=== PATIENT | female | born 1975 | race Caucasian/White ===

== ENCOUNTER 2017-01-06 14:56 | Inpatient (IN) | payer MEDICAID, OTHER ==
[~2017-01-06] VITALS: Ht 162.6 cm; Wt 75.0 kg
[2017-01-06] MEDS ORDERED: morphine 2 MG INJ IV STA (16:44)
[2017-01-06] MEDS ORDERED: ONDANSETRON 4 MG INJ IV STA ×2 (16:44→18:49)
[2017-01-06] MEDS ORDERED: SOD CHLORIDE 0.9% 1,000 ML IV STA (16:44)
[2017-01-06 17:07] LABS: ADD SCAN DIFF NO
[2017-01-06 17:10] LABS: ADD UMIC YES; BASOPHILS % 0.3 % (0.0-2.0); EOSINOPHILS # 0.2 10^3/ul (0.0-0.5); EOSINOPHILS % 1.5 % (0.0-7.0); HEMATOCRIT 37.2 % (37.0-47.0); HEMOGLOBIN 12.3 g/dl (12.0-16.0); LYMPHOCYTES # 2.8 10^3/ul (0.8-2.9); LYMPHOCYTES % 21.8 % (15.0-51.0); MEAN CORPUSCULAR HGB CONC 33.1 g/dl (32.0-37.0); MEAN CORPUSCULAR VOLUME 84.7 fl (82.0-101.0); MEAN PLATELET VOLUME 10.2 fl (7.4-10.4); MONOCYTES % 7.6 % (0.0-11.0); NEUTROPHIL # 8.9 10^3/ul (1.6-7.5); NEUTROPHILS % 68.5 % (39.0-77.0); PLATELET COUNT 340 10^3/UL (140-415); RED BLOOD COUNT 4.39 10^6/ul (4.20-5.40); RED CELL DISTRIBUTION WIDTH 13.9 % (11.5-14.5); URINE BILIRUBIN (Dip) NEGATIVE (NEGATIVE); URINE BLOOD (Dip) 3+ (NEGATIVE); URINE COLOR YELLOW (YELLOW); URINE GLUCOSE (Dip) NEGATIVE (NEGATIVE); URINE KETONES (Dip) NEGATIVE (NEGATIVE); URINE LEUKOCYTE ESTERASE (Dip) NEGATIVE (NEGATIVE); URINE NITRITE (Dip) NEGATIVE (NEGATIVE); URINE TOTAL PROTEIN (Dip) NEGATIVE (NEGATIVE); URINE UROBILINOGEN (Dip) 2.0 E.U./dL (0.1-1.0)
[2017-01-06 17:19] LABS: BACTERIA,URINE FEW; MUCUS,URINE MANY; SQUAMOUS EPITHELIAL CELL,UR FEW
[2017-01-06 17:24] LABS: ALBUMIN 4.7 g/dl (3.3-4.9); POTASSIUM 3.4 mmol/L (3.5-5.1)
[2017-01-06 17:27] LABS: ALBUMIN/GLOBULIN RATIO 1.27; BILIRUBIN,INDIRECT 0.1 mg/dl (0-1.1); BILIRUBIN,TOTAL 0.1 mg/dl (0.2-1.3); CALCIUM 9.3 mg/dl (8.4-10.2); CREATININE 0.59 mg/dl (0.44-1.00); TOTAL PROTEIN 8.4 g/dl (6.1-8.1)
--- NOTE | 2017-01-06 17:52 | RADRPT ---
PROCEDURE: US Abdomen (right upper quadrant). CLINICAL INDICATION: Right upper quadrant abdomen pain. TECHNIQUE: Multiple real-time longitudinal and transverse images of the right upper quadrant of th e abdomen were acquired utilizing a curved array transducer. Images were reviewed on a high-resoluti on PACS workstation. COMPARISON: None FINDINGS: The liver is normal in size and diffusely increased in echogenicity. There is no focal hepatic lesion. Gallstones are present in the gallbladder. There is no gallbladder wall thickening or fluid around the gallbladder. The bile ducts are normal with the common bile duct measuring 5.9 mm in diameter. The visualized portions of the pancreas are unremarkable with obscuration of the tail of the pancrea s. No free fluid is present. The right kidney measures 11.6 x 4.3 x 5.1 cm. There is normal echogenicity of the right kidney. There is no perinephric fluid collection. No hydronephrosis, mass, or calculus is seen. IMPRESSION: 1. Gallstones in the gallbladder. No evidence of cholecystitis. 2. Fatty metamorphosis of the liver. 3. Otherwise normal right upper quadrant abdomen ultrasound. RPTAT: QQ .Pete Henson MD, Date Time Electronically viewed and signed by .Pete Henson MD, on 01/06/2017 17:52 .R/
[2017-01-06] MEDS ORDERED: morphine 2 MG INJ IV ONE (19:00)
[2017-01-06] MEDS ORDERED: SOD CHLORIDE 0.9% 1,000 ML IV ONE (19:00)
[2017-01-06 21:03] VITALS: TEMP 98.1
[2017-01-06] MEDS ORDERED: ALBU90AE INHALATION (21:38)
[2017-01-06 21:51] VITALS: BP 134/85; RESP 18
[2017-01-06] MEDS ORDERED: ALBUTEROL/IPRATROPIUM (NEB) 3 ML AMP HHN PRN (22:00)
[2017-01-06] MEDS ORDERED: ONDANSETRON 4 MG INJ IV PRN (22:00)
[2017-01-06] MEDS ORDERED: morphine 4 MG/ML VIAL IV PRN (22:00)
[2017-01-06] MEDS: DEXTROSE 5%-0.45% NACL 1,000 ML IV SCH (22:24)
[2017-01-06 23:07] VITALS: Ht 162.6 cm; Wt 75.0 kg
--- NOTE | 2017-01-07 03:33 | CONS ---
DATE OF ADMISSION: 01/06/2017 DATE OF CONSULTATION: REASON FOR CONSULTATION: Biliary pancreatitis. HISTORY OF PRESENT ILLNESS: The patient is an otherwise healthy 41-year-old female who presents to the emergency room with midepigastric and right upper quadrant abdominal pain. Abdominal ultrasound showed multiple gallstones without gallbladder wall thickening or pericholecystic fluid. Her lipas e was noted to be 6503. She is admitted with a diagnosis of biliary pancreatitis and surgical consu ltation was requested in that regard. PAST MEDICAL HISTORY: No previous abdominal surgeries. OUTPATIENT MEDICATIONS: None. ALLERGIES: NONE. REVIEW OF SYSTEMS: HEENT: Within normal limits. PULMONARY: No history of pneumonia, asthma or shortness of breath. CARDIAC: No history of chest pain, NE or arrhythmia. ABDOMEN: As in the HPI. GENITOURINARY: Asymptomatic. PHYSICAL EXAMINATION: GENERAL: The patient is alert, oriented 41-year-old female in no acute distress. HEAD, EARS, EYES, NOSE, THROAT: Within normal limits. Sclerae are anicteric. LUNGS: Clear. HEART: Regular rhythm. ABDOMEN: Tenderness in the epigastrium with mild guarding and no rebound. EXTREMITIES: Unremarkable. LABORATORY DATA: Hematocrit is 37.2 with a white count of 13,000. BUN, glucose, electrolytes are u nremarkable. Bilirubin is 0.1 with an elevated AST at 166, ALT 124 and alkaline phosphatase 108. L ipase 6503. IMPRESSION: Biliary pancreatitis. PLAN: The patient will require GI evaluation either with MRCP or ERCP. The patient will require la paroscopic cholecystectomy when the common duct is cleared and her pancreatitis cools off. The shari ng of surgery will depend on the above. I will follow with you. Dictated By: KANWAL ACOSTA/SIMONE Conf#: [id number] DID#: [id number]
--- NOTE | 2017-01-07 05:02 | HP ---
Date/Time of Note Date/Time of Note DATE: 01/07/17 TIME: 04:50 Assessment/Plan VTE Prophylaxis VTE Prophylaxis Intervention: SCD's Lines/Catheters Urinary Cath still in place: No Assessment/Plan Assessment/Plan 1. Gallstone Pancreatitis - Keep NPO with IV fluid - Patient has also been evaluated by surgery with plan for eventual surgical intervention. - Will order MRCP and place GI consult for ERCP. - Cont pain mgmt . 2. Abd Pain: 2/2 pancreatitis - see above 3. Leukocytosis: 2/2 pancreatis - see # 1 4. Abnormal LFTs: 2/2 gallstone pancreatitis with possible contribution from fatty liver - see # 1 for mgmt plan 5. Hx of Asthma - no sign of exacerbation - breathing txt as needed 6. Mild Hypokalemia - replete HPI/ROS Admit Date/Time Admit Date/Time January 06, 2017 at 18:57 Hx of Present Illness Patient is a 41 yo female with a hx of asthma who presented to ER c/o abd pain. Pain is mainly located in RUQ area and epigastric. Reported associated nausea. Denied fever, chills, CP, SOB. In ER, u/s showed Gallstones are present in the gallbladder with no gallbladder wall thickening or fluid around the gallbladder , The bile ducts are normal with the common bile duct measuring 5.9 mm in diameter and Fatty liver. Lab showed lipase of 6500, AST/ALT in 100s. Patient has also been evaluated by surgery with plan for eventual surgical eval after MRCP and GI consult for ERCP. . PMH/Family/Social Past Medical History Medical History: other (Asthma) Past Surgical History Past Surgical Hx: other () Social History Alcohol Use: none Smoking Status: Never smoker Drug Use: none Exam/Review of Systems Vital Signs Vitals Vital Signs Date Time Temp Pulse Resp B/P Pulse Ox O2 Delivery O2 Flow Rate FiO2 01/06/17 21:51 98.6 20 18 134/85 96 01/06/17 21:03 Room Air Exam Constitutional: alert, oriented, well developed Head: atraumatic, normocephalic Eyes: EOMI, PERRL Respiratory: clear to auscultation, normal air movement Cardiovascular: nl pulses, regular rate and rhythm Gastrointestinal: soft, tender Extremities: normal pulses Labs Result Diagram: 01/06/175 01/06/17 2352 Medications Medications Current Medications Dextrose/Sodium Chloride (D5-1/2ns) 1,000 ml @ 125 mls/hr Q8H IV Last administered on 01/06/17t 22:24; Admin Dose 125 MLS/HR; Start 01/06/17 at 22:00 Ondansetron HCl (Zofran Inj) 4 mg Q6H PRN IV NAUSEA AND/OR VOMITING; Start 01/06 at 22:00 Morphine Sulfate (morphine) 4 mg Q4H PRN IV SEVERE PAIN LEVEL 7-10; Start at 22:00 LISANDRO JASSO MD January 07, 2017 05:00
[2017-01-07] MEDS ORDERED: POTASSIUM CHLORIDE 20 MEQ in SOD CHLORIDE 0.9% 100 ML IVPB ONE (05:30)
[2017-01-07] MEDS: DEXTROSE 5%-0.45% NACL 1,000 ML IV SCH ×4 (06:00→18:58)
[2017-01-07 06:08] LABS: ADD SCAN DIFF NO
[2017-01-07 06:12] LABS: BASOPHILS % 0.7 % (0.0-2.0); EOSINOPHILS # 0.2 10^3/ul (0.0-0.5); EOSINOPHILS % 3.6 % (0.0-7.0); HEMOGLOBIN 10.5 g/dl (12.0-16.0); LYMPHOCYTES # 2.6 10^3/ul (0.8-2.9); LYMPHOCYTES % 44.9 % (15.0-51.0); MEAN CORPUSCULAR HEMOGLOBIN 27.9 pg (29.0-33.0); MEAN CORPUSCULAR HGB CONC 32.8 g/dl (32.0-37.0); MEAN CORPUSCULAR VOLUME 84.9 fl (82.0-101.0); MEAN PLATELET VOLUME 10.5 fl (7.4-10.4); MONOCYTE # 0.4 10^3/ul (0.3-0.9); MONOCYTES % 6.6 % (0.0-11.0); NEUTROPHIL # 2.5 10^3/ul (1.6-7.5); PLATELET COUNT 282 10^3/UL (140-415); RED BLOOD COUNT 3.77 10^6/ul (4.20-5.40); RED CELL DISTRIBUTION WIDTH 14.1 % (11.5-14.5); WHITE BLOOD COUNT 5.8 10^3/ul (4.8-10.8)
[2017-01-07 07:40] LABS: ALBUMIN 3.2 g/dl (3.3-4.9); ALBUMIN/GLOBULIN RATIO 1.18; BILIRUBIN,INDIRECT 0.3 mg/dl (0-1.1); BILIRUBIN,TOTAL 0.3 mg/dl (0.2-1.3); CREATININE 0.65 mg/dl (0.44-1.00); MAGNESIUM 1.9 mg/dl (1.7-2.5); PHOSPHORUS 3.7 mg/dl (2.5-4.9); POTASSIUM 4.1 mmol/L (3.5-5.1); TOTAL PROTEIN 5.9 g/dl (6.1-8.1)
[2017-01-07 07:45] VITALS: BP 107/67; RESP 20
--- NOTE | 2017-01-07 09:44 | PN ---
DATE: 01/07/2017 The patient is markedly symptomatically improved. LABORATORY DATA: Her white count has come down to 5800 without left shift. BUN, glucose, electroly gustavo are unremarkable. Lipase has come down dramatically to 125. She still has elevations in AST an d ALT at 139 and 229 respectively. Her abdominal examination shows minimal tenderness in the epigastrium. PLAN: The patient is scheduled for MRCP at 10:30 this morning. Laparoscopic cholecystectomy once C BD clears and pancreatitis resolves. Dictated By: KANWAL ACOSTA/NTS Conf#: [id number] DID#: [id number]
[2017-01-07] MEDS: ACETAMINOPHEN 325 MG TAB PO PRN (11:31)
--- NOTE | 2017-01-07 11:55 | ERA ---
ER Documentation Chief Complaint Date/Time DATE: 01/06/17 Chief Complaint EPIGASTRIC PAIN X 3 DAYS HPI The patient is a 42-year-old female, presenting to the ER because of epigastric abdominal pain for 3 days, intermittently, worse today. She denies similar symptoms previously, denies fever, chills, neck pain, chest pain. She complains of nausea but no vomiting, denies dysuria, diarrhea, constipation. She does not smoke, drinks socially Past medical/medical history: None ROS All systems reviewed and are negative except as per history of present illness. Medications Home Meds Reported Medications Albuterol Sulfate (Proair Respiclick) 90 Mcg Aer.pow.ba, 2 PUFFS INHALATION Q6 Y for SHORTNESS OF BREATH, #1 BOTTLE 01/06/17 Allergies Allergies: Coded Allergies: Penicillins (Unverified Allergy, Unknown, 01/06/17) PMhx/Soc History of Surgery: No Anesthesia Reaction: No Hx Neurological Disorder: No Hx Respiratory Disorders: Yes (ASTHMA) Hx Cardiac Disorders: No Hx Psychiatric Problems: No Hx Miscellaneous Medical Probl: No Hx Alcohol Use: No Hx Substance Use: No Hx Tobacco Use: No Smoking Status: Never smoker Physical Exam Vitals Vital Signs Date Time Temp Pulse Resp B/P Pulse Ox O2 Delivery O2 Flow Rate FiO2 01/06/17 15:16 98.0 81 18 125/79 99 Physical Exam Const: No acute distress. Head: Atraumatic. Eyes: Normal Conjunctiva. ENT: Normal External Ears, Nose and Mouth. Neck: Full range of motion. No meningismus. Resp: Clear to auscultation bilaterally. Cardio: Regular rate and rhythm, no murmurs. Abd: Soft, non distended, normal bowel sounds, mild epigastric and right upper quadrant tenderness, no right lower quadrant, rigidity, rebound, CVA tenderness Skin: No petechiae or rashes. Back: No midline or flank tenderness. Ext: No cyanosis, or edema. Neur: Awake and alert. No focal deficit Psych: Normal Mood and Affect. Result Diagram: 01/07/17 0525 01/07/17 0529 Results 24 hrs Laboratory Tests Test 01/06/17 16:55 White Blood Count 13.010^3/ul Red Blood Count 4.3910^6/ul Hemoglobin 12.3g/dl Hematocrit 37.2% Mean Corpuscular Volume 84.7fl Mean Corpuscular Hemoglobin 28.0pg Mean Corpuscular Hemoglobin Concent 33.1g/dl Red Cell Distribution Width 13.9% Platelet Count 19416^3/UL Mean Platelet Volume 10.2fl Neutrophils % 68.5% Lymphocytes % 21.8% Monocytes % 7.6% Eosinophils % 1.5% Basophils % 0.3% Nucleated Red Blood Cells % 0.0/100WBC Neutrophils # 8.910^3/ul Lymphocytes # 2.810^3/ul Monocytes # 1.010^3/ul Eosinophils # 0.210^3/ul Basophils # 0.010^3/ul Nucleated Red Blood Cells # 0.010^3/ul Urine Color YELLOW Urine Clarity SLIGHTLY CLOUDY Urine pH 6.0 Urine Specific [place] 1.025 Urine Ketones NEGATIVE Urine Nitrite NEGATIVE Urine Bilirubin NEGATIVE Urine Urobilinogen 2.0 E.U./dL Urine Leukocyte Esterase NEGATIVE Urine Microscopic RBC 10-25/HPF Urine Microscopic WBC 0-2/HPF Urine Squamous Epithelial Cells FEW Urine Bacteria FEW Urine Mucus MANY Urine Hemoglobin 3+ Urine Glucose NEGATIVE% Urine Total Protein NEGATIVE Sodium Level 142mmol/L Potassium Level 3.4mmol/L Chloride Level 100mmol/L Carbon Dioxide Level 28mmol/L Anion Gap 17 Blood Urea Nitrogen 12mg/dl Creatinine 0.59mg/dl Glucose Level 94mg/dl Calcium Level 9.3mg/dl Total Bilirubin 0.1mg/dl Direct Bilirubin 0.00mg/dl Indirect Bilirubin 0.1mg/dl Aspartate Amino Transf (AST/SGOT) 166IU/L Alanine Aminotransferase (ALT/SGPT) 124IU/L Alkaline Phosphatase 108IU/L Total Protein 8.4g/dl Albumin 4.7g/dl Globulin 3.70g/dl Albumin/Globulin Ratio 1.27 Lipase 6503U/L Current Medications Medications (Trade) Dose Ordered Sig/Jeremiah Route PRN Reason Start Time Stop Time Status Last Admin Dose Admin Sodium Chloride (NS) 1,000 ml @ 1,000 mls/hr Q1H STAT IV 01/06/17 16:44 01/06/17 17:43 DC 01/06/17 17:03 Morphine Sulfate (morphine) 2 mg ONCE STAT IV 01/06/17 16:44 01/06/17 16:45 DC 01/06/17 17:02 Ondansetron HCl (Zofran Inj) 4 mg ONCE STAT IV 01/06/17 16:44 01/06/17 16:45 DC 01/06/17 17:03 Ondansetron HCl (Zofran Inj) 4 mg ONCE STAT IV 01/06/17 18:49 01/06/17 18:50 DC 01/06/17 19:08 Procedures/[place] [id number] Radiology Main Line: [phone] DIAGNOSTIC IMAGING REPORT Patient: SHREE DIETRICH : 1975 Age: 41 Sex: F MR #: [id number] DOS: 01/06/17 1644 Ordering MD: DESMOND ROUSSEAU PA-C Location: [facility] Room/Bed: PROCEDURE: US Abdomen (right upper quadrant). CLINICAL INDICATION: Right upper quadrant abdomen pain. TECHNIQUE: Multiple real-time longitudinal and transverse images of the right upper quadrant of the abdomen were acquired utilizing a curved array transducer. Images were reviewed on a high-resolution PACS workstation. COMPARISON: None FINDINGS: The liver is normal in size and diffusely increased in echogenicity. There is no focal hepatic lesion. Gallstones are present in the gallbladder. There is no gallbladder wall thickening or fluid around the gallbladder. The bile ducts are normal with the common bile duct measuring 5.9 mm in diameter. The visualized portions of the pancreas are unremarkable with obscuration of the tail of the pancreas. No free fluid is present. The right kidney measures 11.6 x 4.3 x 5.1 cm. There is normal echogenicity of the right kidney. There is no perinephric fluid collection. No hydronephrosis, mass, or calculus is seen. IMPRESSION: 1. Gallstones in the gallbladder. No evidence of cholecystitis. 2. Fatty metamorphosis of the liver. 3. Otherwise normal right upper quadrant abdomen ultrasound. RPTAT: QQ .Pete Henson MD, MD Date Time Electronically viewed and signed by .Pete Henson MD, on 01/06/2017 17:52 .R/ CC: DESMOND ROUSSEAU PA-C MEDICAL MAKING DECISION: The patient is a 41-year-old female, presenting with acute gallstone pancreatitis. She was treated with 1 L normal saline for clinical dehydration, morphine 2 mg IV 2 for pain, Zofran 4 mg IV 2 for nausea with good response The differential diagnoses considered include but are not limited to cholelithiasis, cholecystitis, cystitis, pancreatitis, hepatitis, gastritis, peptic ulcer disease, gastric ulcer, appendicitis, diverticulitis, cholangitis, choledocholithiasis, partial small bowel obstruction. Consultation: I discussed the patient with the on-call general surgeon Dr. Meyer at 6:40 PM, who was made aware of the lab, treatment, the patient condition. He accepted the consult Departure Diagnosis: Primary Impression: Gallstone pancreatitis Additional Impression: Anemia Condition: Stable Comments I discussed the findings with the patient. I discussed the patient with the on- call hospitalist Dr. Koroma who was made aware of the lab, the treatment, the patient condition. The patient is admitted to [facility] at 6:40 PM CATE TALAVERA MD January 07, 2017 11:55
--- NOTE | 2017-01-07 13:48 | RADRPT ---
PROCEDURE: MRCP. CLINICAL INDICATION: Right upper quadrant pain. Gallstones. Pancreatitis. TECHNIQUE: MRCP was performed on the a high-resolution, high Melanie field strength scanner. Patien enedina was examined without contrast. 3-D coronal rotating MIP images of the biliary tree are available for review. COMPARISON: Correlation with ultrasound from 01/06/2017. FINDINGS: Small stones and sludge are seen layering dependently within the gallbladder. There is mild gallbla dder wall edema. The biliary tree is unremarkable without evidence of choledocholithiasis or dilata tion. The proximal CBD measures 5 mm in diameter and tapers smoothly towards the ampulla. The panc reatic duct is not dilated. There is no pancreatic divisum. There is no evidence of increased pancreatic T2 signal or peripancreatic inflammatory changes to sug gest pancreatitis. The liver, spleen, adrenal glands, kidneys, and stomach demonstrate normal sign al intensity and morphology. The visualized bowel is unremarkable. IMPRESSION: Small gallbladder stones and sludge with mild gallbladder wall edema. The findings may represent ac [place] calculus cholecystitis in the correct clinical setting. No evidence of choledocholithiasis, josé iary ductal dilatation, or pancreatitis. RPTAT: HRAA .John Marinelli MD, MD Date Time Electronically viewed and signed by .John Marinelli MD, on 01/07/2017 13:48 .A/
--- NOTE | 2017-01-07 14:19 | PN ---
Date/Time of Note Date/Time of Note DATE: 01/07/17 TIME: 14:17 Assessment/Plan VTE Prophylaxis VTE Prophylaxis Intervention: SCD's Lines/Catheters IV [facility] (from [facility]): Peripheral IV Urinary Cath still in place: No Assessment/Plan Chief Complaint/Hosp Course Assessment/Plan 1. Gallstone Pancreatitis - Keep NPO with IV fluid - Patient has also been evaluated by surgery with plan for eventual surgical intervention. -Status post MRCP without any evidence of choledocholithiasis - Cont pain mgmt 2. Leukocytosis: 2/2 pancreatis - see # 1 3. Abnormal LFTs: 2/2 gallstone pancreatitis with possible contribution from fatty liver - see # 1 for mgmt plan 4. Hx of Asthma - no sign of exacerbation - breathing txt as needed 5. Mild Hypokalemia - replete Problems: Subjective 24 Hr Interval Summary Free Text/Dictation Patient abdominal discomfort has improved significantly Denies of any chest pain or shortness of breath N.p.o. Exam/Review of Systems Vital Signs Vitals Vital Signs Date Time Temp Pulse Resp B/P Pulse Ox O2 Delivery O2 Flow Rate FiO2 01/07/17 07:45 98.0 68 20 107/67 96 01/06/17 21:03 Room Air Intake and Output 01/06/17 01/06/17 01/07/17 15:00 23:00 07:00 Intake Total 875 ml Balance 875 ml Exam General: The patient is well-developed, Not in acute distress. HEENT: Atraumatic, normocephalic. The pupils are equal and round . Neck: Supple with full range of motion. Chest: Normal expansion of the thorax during inspiration Lungs: Clear to auscultation bilaterally Heart: Normal S1-S2, Regular rhythm and rate. Abdomen: Soft , nontender, nondistended , bowel sounds are present. Extremities: Normal to inspection, no edema no cyanosis Neurologic: Normal mental status,The patient is awake, alert and oriented . Results Result Diagram: 01/07/17 0525 01/07/17 0529 Results 24 hrs Laboratory Tests Test 01/06/17 16:55 01/07/17 05:25 01/07/17 05:29 White Blood Count 13.0 H 5.8 # Red Blood Count 4.39 3.77 L Hemoglobin 12.3 10.5 L Hematocrit 37.2 32.0 L Mean Corpuscular Volume 84.7 84.9 Mean Corpuscular Hemoglobin 28.0 L 27.9 L Mean Corpuscular Hemoglobin Concent 33.1 32.8 Red Cell Distribution Width 13.9 14.1 Platelet Count 340 282 Mean Platelet Volume 10.2 10.5 H Neutrophils % 68.5 44.0 Lymphocytes % 21.8 44.9 Monocytes % 7.6 6.6 Eosinophils % 1.5 3.6 Basophils % 0.3 0.7 Nucleated Red Blood Cells % 0.0 0.0 Neutrophils # 8.9 H 2.5 Lymphocytes # 2.8 2.6 Monocytes # 1.0 H 0.4 Eosinophils # 0.2 0.2 Basophils # 0.0 0.0 Nucleated Red Blood Cells # 0.0 0.0 Urine Color YELLOW Urine Clarity SLIGHTLY CLOUDY Urine pH 6.0 Urine Specific [place] 1.025 Urine Ketones NEGATIVE Urine Nitrite NEGATIVE Urine Bilirubin NEGATIVE Urine Urobilinogen 2.0 E.U./dL H Urine Leukocyte Esterase NEGATIVE Urine Microscopic RBC 10-25 Urine Microscopic WBC 0-2 Urine Squamous Epithelial Cells FEW Urine Bacteria FEW Urine Mucus MANY Urine Hemoglobin 3+ H Urine Glucose NEGATIVE Urine Total Protein NEGATIVE Sodium Level 142 136 Potassium Level 3.4 L 4.1 Chloride Level 100 109 Carbon Dioxide Level 28 26 Anion Gap 17 H 5 #L Blood Urea Nitrogen 12 10 Creatinine 0.59 0.65 Glucose Level 94 93 Calcium Level 9.3 8.0 L Total Bilirubin 0.1 L 0.3 Direct Bilirubin 0.00 0.00 Indirect Bilirubin 0.1 0.3 Aspartate Amino Transf (AST/SGOT) 166 H 139 H Alanine Aminotransferase (ALT/SGPT) 124 H 229 H Alkaline Phosphatase 108 86 Total Protein 8.4 H 5.9 #L Albumin 4.7 3.2 #L Globulin 3.70 H 2.70 Albumin/Globulin Ratio 1.27 1.18 Lipase 6503 H 125 Phosphorus Level 3.7 Magnesium Level 1.9 Medications Medications Current Medications Dextrose/Sodium Chloride (D5-1/2ns) 1,000 ml @ 125 mls/hr Q8H IV Last administered on 01/06/17t 22:24; Admin Dose 125 MLS/HR; Start 01/06/17 at 22:00 Ondansetron HCl (Zofran Inj) 4 mg Q6H PRN IV NAUSEA AND/OR VOMITING; Start 01/06 at 22:00 Morphine Sulfate (morphine) 4 mg Q4H PRN IV SEVERE PAIN LEVEL 7-10; Start at 22:00 Acetaminophen 650 mg 650 mg Q6H PRN PO PAIN AND OR ELEVATED TEMP Last administered on 01/07/17t 11:31; Admin Dose 650 MG; Start 01/07/17 at 11:30 Levofloxacin/ Dextrose (Levaquin 500mg/ D5W 100 ml (Pmx)) 100 ml @ 100 mls/hr Q24H IVPB ; Start 01/07/17 at 14:30; Status TUSHAR RIGGS MD January 07, 2017 14:19
[2017-01-07] MEDS: LEVOFLOXACIN 500MG/D5W (PMX) 100 ML IVPB SCH (14:28)
--- NOTE | 2017-01-07 16:11 | CONS ---
Date/Time of Note Date/Time of Note DATE: 01/07/17 TIME: 15:50 Assessment/Plan Assessment/Plan Additional Assessment/Plan Assessment * Abdominal pain/transaminitis Gallstone pancreatitis Ultrasound 01/06/2017 Gallstones in the gallbladder. No evidence of cholecystitis. Fatty metamorphosis of the liver. MRCP 01/07/2017 Small gallbladder stones and sludge with mild gallbladder wall edema. The findings may represent acute calculus cholecystitis in the correct clinical setting. No evidence of choledocholithiasis, biliary ductal dilatation, or pancreatitis. Plan * adequate pain control * continue present management * . Consultation Date/Type/Reason Admit Date/Time January 06, 2017 at 18:57 Date of Consultation: January 07, 2017 Type of Consultation: Gastroenterology Reason for Consultation abdominal pain/elevated transaminase Referring Provider: SHAYE PETTY Hx of Present Illness 41 year old female with no significant past medical history was brought to emergency room last night complaining of right upper quadrant pain.Present condition apparently stated few hours prior to consult as sudden onset of severe right upper quadrant pain radiating to the back with associated nausea but no vomiting.Patient denies any fever,jaundice nor vomiting. Emergency room course ultrasound of abdomen revealed 01/06/2017 Gallstones in the gallbladder. No evidence of cholecystitis. Fatty metamorphosis of the liver. Otherwise normal right upper quadrant abdomen ultrasound.Initial WBC 13 ,AST 166,ALT 124 Lipase 6503.patient was subsequently admitted. On the floor patient denies abdominal pain.fever present white blood cell count is 5.3.AST 139,ALT 229 ,and lipase 125.MRCP revealed mall gallbladder stones and sludge with mild gallbladder wall edema. The findings may represent acute calculus cholecystitis in the correct clinical setting. No evidence of choledocholithiasis, biliary ductal dilatation, or pancreatitis. Past Medical History Medical History: no pertinent history, other Past Surgical History Past Surgical Hx: no surgical history, other Family History Significant Family History: no pertinent family hx Social History Alcohol Use: none Smoking Status: Never smoker Drug Use: none Exam/Review of Systems Vital Signs Vitals Vital Signs Date Time Temp Pulse Resp B/P Pulse Ox O2 Delivery O2 Flow Rate FiO2 01/07/17 07:45 98.0 68 20 107/67 96 01/06/17 21:03 Room Air Intake and Output 01/06/17 01/06/17 01/07/17 15:00 23:00 07:00 Intake Total 875 ml Balance 875 ml Exam Constitutional: alert, oriented, well developed Psych: nl mood/affect, no complaints Eyes: PERRL, nl sclera Neck: non-tender, supple Respiratory: clear to auscultation, normal air movement Cardiovascular: nl pulses, regular rate and rhythm Gastrointestinal: nl liver, spleen, non-tender, soft Musculoskeletal: nl extremities to inspection, nl gait and stance Extremities: normal pulses Neurological: nl mental status, nl speech, nl strength Skin: nl turgor, No rash or lesions Lymph: nl lymph nodes Results Result Diagram: 01/07/17 0525 01/07/17 0529 Results 24 hrs Laboratory Tests Test 01/06/17 16:55 01/07/17 05:25 01/07/17 05:29 White Blood Count 13.0 H 5.8 # Red Blood Count 4.39 3.77 L Hemoglobin 12.3 10.5 L Hematocrit 37.2 32.0 L Mean Corpuscular Volume 84.7 84.9 Mean Corpuscular Hemoglobin 28.0 L 27.9 L Mean Corpuscular Hemoglobin Concent 33.1 32.8 Red Cell Distribution Width 13.9 14.1 Platelet Count 340 282 Mean Platelet Volume 10.2 10.5 H Neutrophils % 68.5 44.0 Lymphocytes % 21.8 44.9 Monocytes % 7.6 6.6 Eosinophils % 1.5 3.6 Basophils % 0.3 0.7 Nucleated Red Blood Cells % 0.0 0.0 Neutrophils # 8.9 H 2.5 Lymphocytes # 2.8 2.6 Monocytes # 1.0 H 0.4 Eosinophils # 0.2 0.2 Basophils # 0.0 0.0 Nucleated Red Blood Cells # 0.0 0.0 Urine Color YELLOW Urine Clarity SLIGHTLY CLOUDY Urine pH 6.0 Urine Specific Scheller 1.025 Urine Ketones NEGATIVE Urine Nitrite NEGATIVE Urine Bilirubin NEGATIVE Urine Urobilinogen 2.0 E.U./dL H Urine Leukocyte Esterase NEGATIVE Urine Microscopic RBC 10-25 Urine Microscopic WBC 0-2 Urine Squamous Epithelial Cells FEW Urine Bacteria FEW Urine Mucus MANY Urine Hemoglobin 3+ H Urine Glucose NEGATIVE Urine Total Protein NEGATIVE Sodium Level 142 136 Potassium Level 3.4 L 4.1 Chloride Level 100 109 Carbon Dioxide Level 28 26 Anion Gap 17 H 5 #L Blood Urea Nitrogen 12 10 Creatinine 0.59 0.65 Glucose Level 94 93 Calcium Level 9.3 8.0 L Total Bilirubin 0.1 L 0.3 Direct Bilirubin 0.00 0.00 Indirect Bilirubin 0.1 0.3 Aspartate Amino Transf (AST/SGOT) 166 H 139 H Alanine Aminotransferase (ALT/SGPT) 124 H 229 H Alkaline Phosphatase 108 86 Total Protein 8.4 H 5.9 #L Albumin 4.7 3.2 #L Globulin 3.70 H 2.70 Albumin/Globulin Ratio 1.27 1.18 Lipase 6503 H 125 Phosphorus Level 3.7 Magnesium Level 1.9 Medications Medications Current Medications Dextrose/Sodium Chloride (D5-1/2ns) 1,000 ml @ 125 mls/hr Q8H IV Last administered on 01/07/17 09:00; Admin Dose 125 MLS/HR; Start 01/06/17 at 22:00 Ondansetron HCl (Zofran Inj) 4 mg Q6H PRN IV NAUSEA AND/OR VOMITING; Start 01/06 at 22:00 Morphine Sulfate (morphine) 4 mg Q4H PRN IV SEVERE PAIN LEVEL 7-10; Start at 22:00 Acetaminophen 650 mg 650 mg Q6H PRN PO PAIN AND OR ELEVATED TEMP Last administered on 01/07/17 11:31; Admin Dose 650 MG; Start 01/07/17 at 11:30 Levofloxacin/ Dextrose (Levaquin 500mg/ D5W 100 ml (Pmx)) 100 ml @ 100 mls/hr Q24H IVPB Last administered on 01/07/17 14:28; Admin Dose 100 MLS/HR; Start 01/07/17 at 14:30 MELLO RONQUILLO MD January 07, 2017 16:00
[2017-01-07 19:30] VITALS: BP 128/76; RESP 16
[2017-01-08] VITALS (16 sets, daily range): BP systolic 111–143; BP diastolic 63–83; PULSE 62–96; RESP 12–25
[2017-01-08] MEDS: DEXTROSE 5%-0.45% NACL 1,000 ML IV SCH ×3 (04:47→22:02)
[2017-01-08 05:48] LABS: ADD SCAN DIFF NO
[2017-01-08 05:55] LABS: BASOPHILS % 0.5 % (0.0-2.0); EOSINOPHILS # 0.2 10^3/ul (0.0-0.5); EOSINOPHILS % 3.6 % (0.0-7.0); LYMPHOCYTES # 2.6 10^3/ul (0.8-2.9); LYMPHOCYTES % 42.3 % (15.0-51.0); MEAN CORPUSCULAR HEMOGLOBIN 28.2 pg (29.0-33.0); MEAN CORPUSCULAR HGB CONC 33.3 g/dl (32.0-37.0); MEAN CORPUSCULAR VOLUME 84.6 fl (82.0-101.0); MEAN PLATELET VOLUME 10.4 fl (7.4-10.4); MONOCYTE # 0.5 10^3/ul (0.3-0.9); MONOCYTES % 7.8 % (0.0-11.0); NEUTROPHIL # 2.8 10^3/ul (1.6-7.5); NEUTROPHILS % 45.6 % (39.0-77.0); PLATELET COUNT 295 10^3/UL (140-415); RED CELL DISTRIBUTION WIDTH 13.9 % (11.5-14.5); WHITE BLOOD COUNT 6.1 10^3/ul (4.8-10.8)
[2017-01-08 06:26] LABS: ALBUMIN 3.4 g/dl (3.3-4.9); ALBUMIN/GLOBULIN RATIO 1.13; BILIRUBIN,INDIRECT 0.4 mg/dl (0-1.1); BILIRUBIN,TOTAL 0.4 mg/dl (0.2-1.3); CALCIUM 8.6 mg/dl (8.4-10.2); CREATININE 0.64 mg/dl (0.44-1.00); POTASSIUM 4.3 mmol/L (3.5-5.1); TOTAL PROTEIN 6.4 g/dl (6.1-8.1)
[2017-01-08] MEDS: ACETAMINOPHEN 325 MG TAB PO PRN (08:23)
--- NOTE | 2017-01-08 11:46 | PN ---
Date/Time of Note Date/Time of Note DATE: 01/08/17 TIME: 11:44 Assessment/Plan VTE Prophylaxis VTE Prophylaxis Intervention: SCD's Lines/Catheters IV [facility]ter Type (from [facility]): Peripheral IV Urinary Cath still in place: No Assessment/Plan Chief Complaint/Hosp Course Assessment/Plan 1. Gallstone Pancreatitis - Keep NPO with IV fluid - Patient has also been evaluated by surgery with plan for eventual surgical intervention. -Status post MRCP without any evidence of choledocholithiasis - Cont pain mgmt follow general surgery recommendations 2. Leukocytosis: 2/2 pancreatis - see # 1 3. Abnormal LFTs: 2/2 gallstone pancreatitis with possible contribution from fatty liver - see # 1 for mgmt plan -Improving 4. Hx of Asthma - no sign of exacerbation - breathing txt as needed 5. Mild Hypokalemia - replete We will continue monitor patient closely for recommendation management treatment as per the clinical course Problems: Subjective 24 Hr Interval Summary Free Text/Dictation Patient denies any chest pain or shortness of breath Denies any abdominal pain Complains of mild headache secondary to hunger Exam/Review of Systems Vital Signs Vitals Vital Signs Date Time Temp Pulse Resp B/P Pulse Ox O2 Delivery O2 Flow Rate FiO2 01/08/17 07:53 97.9 66 18 122/77 97 01/06/17 21:03 Room Air Intake and Output 01/07/17 01/07/17 01/08/17 15:00 23:00 07:00 Intake Total 125 ml 1000 ml 1130 ml Output Total 0 ml Balance 125 ml 1000 ml 1130 ml Exam General: The patient is well-developed, Not in acute distress. HEENT: Atraumatic, normocephalic. The pupils are equal and round . Neck: Supple with full range of motion. Chest: Normal expansion of the thorax during inspiration Lungs: Clear to auscultation bilaterally Heart: Normal S1-S2, Regular rhythm and rate. Abdomen: Soft , nontender, nondistended , bowel sounds are present. Extremities: Normal to inspection, no edema no cyanosis Neurologic: Normal mental status,The patient is awake, alert and oriented . Results Result Diagram: 01/08/17 0515 01/08/17 0525 Results 24 hrs Laboratory Tests Test 01/08/17 05:15 01/08/17 05:25 White Blood Count 6.1 Red Blood Count 3.90 L Hemoglobin 11.0 L Hematocrit 33.0 L Mean Corpuscular Volume 84.6 Mean Corpuscular Hemoglobin 28.2 L Mean Corpuscular Hemoglobin Concent 33.3 Red Cell Distribution Width 13.9 Platelet Count 295 Mean Platelet Volume 10.4 Neutrophils % 45.6 Lymphocytes % 42.3 Monocytes % 7.8 Eosinophils % 3.6 Basophils % 0.5 Nucleated Red Blood Cells % 0.0 Neutrophils # 2.8 Lymphocytes # 2.6 Monocytes # 0.5 Eosinophils # 0.2 Basophils # 0.0 Nucleated Red Blood Cells # 0.0 Sodium Level 139 Potassium Level 4.3 Chloride Level 107 Carbon Dioxide Level 28 Anion Gap 8 Blood Urea Nitrogen 5 L Creatinine 0.64 Glucose Level 102 Calcium Level 8.6 Magnesium Level 2.0 Total Bilirubin 0.4 Direct Bilirubin 0.00 Indirect Bilirubin 0.4 Aspartate Amino Transf (AST/SGOT) 62 H Alanine Aminotransferase (ALT/SGPT) 160 H Alkaline Phosphatase 84 Total Protein 6.4 Albumin 3.4 Globulin 3.00 Albumin/Globulin Ratio 1.13 Lipase 35 Medications Medications Current Medications Dextrose/Sodium Chloride (D5-1/2ns) 1,000 ml @ 125 mls/hr Q8H IV Last administered on 01/08/17 04:47; Admin Dose 125 MLS/HR; Start 01/06/17 at 22:00 Ondansetron HCl (Zofran Inj) 4 mg Q6H PRN IV NAUSEA AND/OR VOMITING; Start 01/06 at 22:00 Morphine Sulfate (morphine) 4 mg Q4H PRN IV SEVERE PAIN LEVEL 7-10; Start at 22:00 Acetaminophen 650 mg 650 mg Q6H PRN PO PAIN AND OR ELEVATED TEMP Last administered on 01/08/17 08:23; Admin Dose 650 MG; Start 01/07/17 at 11:30 Levofloxacin/ Dextrose (Levaquin 500mg/ D5W 100 ml (Pmx)) 100 ml @ 100 mls/hr Q24H IVPB Last administered on 01/07/17 14:28; Admin Dose 100 MLS/HR; Start 01/07/17 at 14:30 TUSHAR SANTOS MD January 08, 2017 11:46
[2017-01-08] MEDS: LEVOFLOXACIN 500MG/D5W (PMX) 100 ML IVPB SCH (14:43)
--- NOTE | 2017-01-08 15:16 | PN ---
Date/Time of Note Date/Time of Note DATE: 01/08/17 TIME: 15:13 Assessment/Plan VTE Prophylaxis VTE Prophylaxis Intervention: ambulation Lines/Catheters [facility]): Peripheral IV Urinary Cath still in place: No Assessment/Plan Assessment/Plan Assessment * Abdominal pain/transaminitis resolved Gallstone pancreatitis Ultrasound 01/06/2017 Gallstones in the gallbladder. No evidence of cholecystitis. Fatty metamorphosis of the liver. MRCP 01/07/2017 Small gallbladder stones and sludge with mild gallbladder wall edema. The findings may represent acute calculus cholecystitis in the correct clinical setting. No evidence of choledocholithiasis, biliary ductal dilatation, or pancreatitis. Plan * adequate pain control * continue present management Subjective 24 Hr Interval Summary Free Text/Dictation * Course reviewed with RN * patient seen and examined * scheduled for laparoscopic cholecystectomy * no abdominal pain Exam/Review of Systems Vital Signs Vitals Vital Signs Date Time Temp Pulse Resp B/P Pulse Ox O2 Delivery O2 Flow Rate FiO2 01/08/17 07:53 97.9 66 18 122/77 97 01/06/17 21:03 Room Air Intake and Output 01/07/17 01/07/17 01/08/17 15:00 23:00 07:00 Intake Total 125 ml 1000 ml 1130 ml Output Total 0 ml Balance 125 ml 1000 ml 1130 ml Exam Constitutional: alert, oriented Psych: nl mood/affect, no complaints Neck: non-tender, supple Respiratory: clear to auscultation, normal air movement Cardiovascular: nl pulses, regular rate and rhythm Gastrointestinal: bowel sounds, non-tender, soft Musculoskeletal: nl extremities to inspection, nl gait and stance Extremities: normal pulses Results Result Diagram: 01/08/17 0515 01/08/17 0525 Results 24 hrs Laboratory Tests Test 01/08/17 05:15 01/08/17 05:25 White Blood Count 6.1 Red Blood Count 3.90 L Hemoglobin 11.0 L Hematocrit 33.0 L Mean Corpuscular Volume 84.6 Mean Corpuscular Hemoglobin 28.2 L Mean Corpuscular Hemoglobin Concent 33.3 Red Cell Distribution Width 13.9 Platelet Count 295 Mean Platelet Volume 10.4 Neutrophils % 45.6 Lymphocytes % 42.3 Monocytes % 7.8 Eosinophils % 3.6 Basophils % 0.5 Nucleated Red Blood Cells % 0.0 Neutrophils # 2.8 Lymphocytes # 2.6 Monocytes # 0.5 Eosinophils # 0.2 Basophils # 0.0 Nucleated Red Blood Cells # 0.0 Sodium Level 139 Potassium Level 4.3 Chloride Level 107 Carbon Dioxide Level 28 Anion Gap 8 Blood Urea Nitrogen 5 L Creatinine 0.64 Glucose Level 102 Calcium Level 8.6 Magnesium Level 2.0 Total Bilirubin 0.4 Direct Bilirubin 0.00 Indirect Bilirubin 0.4 Aspartate Amino Transf (AST/SGOT) 62 H Alanine Aminotransferase (ALT/SGPT) 160 H Alkaline Phosphatase 84 Total Protein 6.4 Albumin 3.4 Globulin 3.00 Albumin/Globulin Ratio 1.13 Lipase 35 Medications Medications Current Medications Dextrose/Sodium Chloride (D5-1/2ns) 1,000 ml @ 125 mls/hr Q8H IV Last administered on 01/08/17 14:43; Admin Dose 125 MLS/HR; Start 01/06/17 at 22:00 Ondansetron HCl (Zofran Inj) 4 mg Q6H PRN IV NAUSEA AND/OR VOMITING; Start 01/06 at 22:00 Morphine Sulfate (morphine) 4 mg Q4H PRN IV SEVERE PAIN LEVEL 7-10; Start at 22:00 Acetaminophen 650 mg 650 mg Q6H PRN PO PAIN AND OR ELEVATED TEMP Last administered on 01/08/17 08:23; Admin Dose 650 MG; Start 01/07/17 at 11:30 Levofloxacin/ Dextrose (Levaquin 500mg/ D5W 100 ml (Pmx)) 100 ml @ 100 mls/hr Q24H IVPB Last administered on 01/08/17 14:43; Admin Dose 100 MLS/HR; Start at 14:30 MELLO RONQUILLO MD January 08, 2017 15:16
[2017-01-08] MEDS ORDERED: BUPIVACAINE 0.25%/EPI (SDV) 30 ML INJ ONE (17:00)
[2017-01-08] MEDS ORDERED: ALBUTEROL 0.083% (NEB) 2.5 MG/3 ML AMP HHN STA (17:12)
--- NOTE | 2017-01-08 17:21 | HPN ---
Date/Time of Note Date/Time of Note DATE: 01/08/17 TIME: 17:20 Interval H&P Admission Note Pt. seen H&P reviewed: Systems changes noted below pancreatitis resoved no cbd stones KANWAL URENA MD January 08, 2017 17:21
[2017-01-08] MEDS ORDERED: CIPROFLOXACIN 400MG/D5W 200 ML ONE (17:35)
[2017-01-08] MEDS ORDERED: FENTAnyl 50 MCG/ML VIAL ONE (17:37)
[2017-01-08] MEDS ORDERED: PROPOFOL 20 ML ONE (17:37)
[2017-01-08] MEDS ORDERED: SUCCINYLCHOLINE CHLORIDE 100 MG/5 ML SYG IV ONE (17:37)
[2017-01-08] MEDS ORDERED: LIDOCAINE 1% (MDV) 20 ML INJ ONE (17:37)
[2017-01-08] MEDS ORDERED: MIDAZOLAM 1 MG/ML 2 ML INJ ONE (17:37)
[2017-01-08] MEDS ORDERED: ROCURONIUM 50 MG INJ ONE (17:37)
[2017-01-08] MEDS ORDERED: DEXAMETHASONE 4 MG/ML 1 ML INJ ONE (17:57)
[2017-01-08] MEDS ORDERED: ONDANSETRON 4 MG INJ ONE (17:57)
[2017-01-08] MEDS ORDERED: FAMOTIDINE 20 MG INJ ONE (17:57)
[2017-01-08] MEDS ORDERED: ACETAMINOPHEN 1000MG/100ML IV 100 ML ONE (17:58)
[2017-01-08] MEDS ORDERED: ROPIVACAINE 0.2% 20 ML VIAL ONE (18:12)
[2017-01-08] MEDS ORDERED: NEOSTIGMINE 3 MG/3 ML SYRINGE ONE (18:19)
[2017-01-08] MEDS ORDERED: GLYCOPYRROLATE 0.4 MG INJ ONE (18:19)
[2017-01-08] MEDS ORDERED: morphine 2 MG INJ IV PRN (18:30)
[2017-01-08] MEDS ORDERED: OXYCODONE/ACETAMINOPHEN (5/325) TAB PO PRN ×2 (18:30)
--- NOTE | 2017-01-08 18:46 | OPR ---
DATE OF OPERATION: 01/08/2017 PREOPERATIVE DIAGNOSES: 1. Cholecystitis. 2. Resolved biliary pancreatitis. PROCEDURE: Laparoscopic cholecystectomy. POSTOPERATIVE DIAGNOSES: 1. Cholecystitis. 2. Resolved biliary pancreatitis. SURGEON: Kanwal Meyer MD ANESTHESIA: General. ANESTHESIOLOGIST: Eduardo Kingsley DO OPERATIVE REPORT: After satisfactory general anesthesia was achieved, the abdomen was prepped and d raped in the usual fashion. The abdomen was insufflated with carbon dioxide through an umbilical Ve ress needle to 15 mmHg pressure. The Veress needle was removed and the umbilical incision extended to 5 mm, through which a 5 mm trocar was placed. A 5-mm, 0-degree lens was placed. Laparoscopy hector wed a distended gallbladder without any free fluid surrounding the gallbladder. Under direct visual ization, a 10 mm epigastric trocar was placed as well as two 5 mm right lateral abdominal trocars. The dome of the gallbladder was grasped and retracted superiorly. Luh pouch was retracted infe riorly. The hepatoduodenal ligament was carefully dissected between the gallbladder and the sujey h epatis. The cystic duct was then dissected and triply hemoclipped and divided high at the junction of the gallbladder and cystic duct. The cystic artery was dissected and triply hemoclipped. The ga llbladder was then dissected from below using electrocautery dissection and placed fully intact into an EndoCatch, removed via the epigastric route. Hemostasis of the liver bed was excellent and irri sheyla returned clear. The abdomen was then desufflated and the trocars were removed. The fascia of the epigastrium was closed with a single suture of 0 Vicryl. The skin punctures were infiltrated wi th 30 mL of 0.25% Marcaine with epinephrine and closed with nidhi. Operative blood loss less than 10 mL. Sponge and needle counts reported as correct x2. The patient tolerated the procedure well and without incident or complication. Dictated By: KANWAL ACOSTA/SIMONE Conf#: [id number] DID#: [id number] CC: SHAYE PETTY MD;*EndCC*
[2017-01-08] MEDS ORDERED: DIPHENHYDRAMINE 50 MG INJ IV PRN (19:00)
[2017-01-08] MEDS ORDERED: PROCHLORPERAZINE 10 MG INJ IV PRN (19:00)
[2017-01-08] MEDS ORDERED: HYDROmorphONE (0.2 MG/ML) 10ML SYG IV PRN ×2 (19:00)
[2017-01-08] MEDS ORDERED: MEPERIDINE 25 MG INJ IV PRN (19:00)
[2017-01-08] MEDS: ONDANSETRON 4 MG INJ IV PRN (19:01)
[2017-01-08] MEDS: HYDROmorphONE (0.2 MG/ML) 10ML SYG IV PRN ×2 (19:01→19:19)
[2017-01-08] MEDS ORDERED: METOCLOPRAMIDE 10 MG INJ IV PRN (21:30)
[2017-01-09] MEDS: ONDANSETRON 4 MG INJ IV PRN (01:15)
[2017-01-09] MEDS: DEXTROSE 5%-0.45% NACL 1,000 ML IV SCH ×2 (05:56→14:38)
[2017-01-09 06:13] LABS: ADD SCAN DIFF NO
[2017-01-09 06:19] LABS: BASOPHILS % 0.1 % (0.0-2.0); HEMATOCRIT 34.2 % (37.0-47.0); HEMOGLOBIN 11.3 g/dl (12.0-16.0); LYMPHOCYTES # 0.8 10^3/ul (0.8-2.9); LYMPHOCYTES % 8.2 % (15.0-51.0); MEAN CORPUSCULAR HEMOGLOBIN 27.8 pg (29.0-33.0); MEAN CORPUSCULAR VOLUME 84.2 fl (82.0-101.0); MEAN PLATELET VOLUME 10.8 fl (7.4-10.4); MONOCYTE # 0.2 10^3/ul (0.3-0.9); MONOCYTES % 1.9 % (0.0-11.0); NEUTROPHILS % 89.4 % (39.0-77.0); PLATELET COUNT 308 10^3/UL (140-415); RED BLOOD COUNT 4.06 10^6/ul (4.20-5.40); RED CELL DISTRIBUTION WIDTH 13.7 % (11.5-14.5)
[2017-01-09 07:00] LABS: ALBUMIN 3.8 g/dl (3.3-4.9); ALBUMIN/GLOBULIN RATIO 1.18; BILIRUBIN,INDIRECT 0.2 mg/dl (0-1.1); BILIRUBIN,TOTAL 0.2 mg/dl (0.2-1.3); CALCIUM 8.8 mg/dl (8.4-10.2); CREATININE 0.56 mg/dl (0.44-1.00); POTASSIUM 4.2 mmol/L (3.5-5.1)
[2017-01-09 07:55] VITALS: BP 134/64; RESP 16
--- NOTE | 2017-01-09 07:56 | PN ---
DATE: 01/09/2017 SURGICAL PROGRESS NOTE Postoperative day #1. The patient is markedly symptomatically improved. She has been afebrile thro ughout. OBJECTIVE: ABDOMEN: Benign. LABORATORY DATA: Hematocrit is 34.2 with a white count of 10,000. Liver function tests are normal. IMPRESSION: Excellent postoperative recovery. PLAN: The patient is cleared for discharge home today. I have left the patient a prescription for Percocet and Cipro. Office followup in 1 week for staple removal. Dictated By: KANWAL ACOSTA/SIMONE Conf#: [id number] DID#: [id number]
--- NOTE | 2017-01-09 13:31 | PDOCDIS ---
Discharge Instructions CONDITION Patient Condition: Good HOME CARE INSTRUCTIONS: Diet Instructions: Low Fat /Cholesterol ACTIVITY: Activity Restrictions: Slowly Increase Activity Rest between Activity Avoid heavy lifting Avoid Heavy Housework FOLLOW UP/APPOINTMENTS Appointments FOllow up with General surgeon in one week TUSHAR SANTOS MD January 09, 2017 13:31
[2017-01-09] MEDS ORDERED: Oxycodone/Acetamin (5/325) PO (13:32)
--- NOTE | 2017-01-09 14:26 | DS ---
DATE OF ADMISSION: 01/06/2017 DATE OF DISCHARGE: 01/09/2017 SURGEONS: 1. Dr. Jin River. 2. Dr. Emanuel Myeer. PROCEDURES: Laparoscopic cholecystectomy. DIAGNOSES: 1. Cholecystitis. 2. Resolved biliary pancreatitis. 3. Pancreatitis. 4. Obesity. MEDICATIONS: 1. Percocet. 2. Ciprofloxacin. HOSPITAL COURSE: This is a very pleasant 41-year-old female with no significant past medical histor y except for asthma, who presented to [facility] having abdominal pain and right upper quadrant and epigastric discomfort, associated with nausea, without any fever, chills or chest pain. Ultrasound in the emergency room showed gallstones, and gallbladder wall, with no gallb ladder wall thickening or fluid around the gallbladder. It also showed fatty liver. Labs showed a lipase of 6500, AST and ALT in the 100s. The patient was seen and evaluated with general surgery an d gastroenterology. MRCP was obtained, which showed no evidence of choledocholithiasis. The patien t was made n.p.o., IV fluids and pain medication. Her lipase started to improve significantly. Her LFTs started to improve. The patient was taken to the OR on 01/08/2017 after signing a consent an d under general anesthesia had a laparoscopic cholecystectomy, which the patient tolerated the proce dure well and was taken to recovery in stable condition. The patient was continued on pain medicati ons, IV fluid, was started on a full liquid diet and has been advanced as tolerated. Her LFTs have been improving. Laboratory: Lipase today is 13. Sodium 133, potassium 4.2, chloride 105, bicarbona te 25, BUN 4, creatinine 0.56, glucose 165. AST 54, ALT 141. Bilirubin is normal. Hemoglobin 11.3 , hematocrit 34.2, platelets 308. WBC 10. Vital signs: Temperature 98, pulse 79, respirations 16, blood pressure 134/64, oxygen 98% on room ai r. CONDITION AT THE TIME OF DISCHARGE: Stable. The patient has been able to tolerate oral intake without any nausea or vomiting. FOLLOWUP: Follow up with Dr. Emanuel Meyer, general surgery, in 1 week for removal of nidhi. DIET: Low fat, low cholesterol. ACTIVITY: Light activity x4 weeks. Dictated By: TUSHAR GARRISON/NTS Conf#: [id number] [facility]#: [id number]
[2017-01-09] MEDS: LEVOFLOXACIN 500MG/D5W (PMX) 100 ML IVPB SCH (14:36)
--- NOTE | 2017-01-09 15:15 | PN ---
Date/Time of Note Date/Time of Note DATE: 01/09/17 TIME: 15:12 Assessment/Plan VTE Prophylaxis VTE Prophylaxis Intervention: ambulation Lines/Catheters [facility] Peripheral IV Urinary Cath still in place: No Assessment/Plan Assessment/Plan Abdominal pain/transaminitis resolved Gallstone pancreatitis Laparoscopic cholecystectomy 01/08/2017 Ultrasound 01/06/2017 Gallstones in the gallbladder. No evidence of cholecystitis. Fatty metamorphosis of the liver. MRCP 01/07/2017 Small gallbladder stones and sludge with mild gallbladder wall edema. The findings may represent acute calculus cholecystitis in the correct clinical setting. No evidence of choledocholithiasis, biliary ductal dilatation, or pancreatitis. Plan * adequate pain control * continue present management Subjective 24 Hr Interval Summary Free Text/Dictation * Course reviewed with RN * patient seen and examined * s/p cholecystectomy 01/08/2017 * afebrile,no abdominal pain Exam/Review of Systems Vital Signs Vitals Vital Signs Date Time Temp Pulse Resp B/P Pulse Ox O2 Delivery O2 Flow Rate FiO2 01/09/17 07:55 98.0 79 16 134/64 98 01/08/17 22:18 Nasal Cannula 2.0 01/08/17 17:18 21 Intake and Output 01/08/17 01/08/17 01/09/17 15:00 23:00 07:00 Intake Total 870 ml 1100 ml 1400 ml Output Total 5 ml Balance 870 ml 1095 ml 1400 ml Exam Constitutional: alert, oriented Head: normocephalic Neck: supple Respiratory: clear to auscultation, normal air movement Cardiovascular: nl pulses, regular rate and rhythm Gastrointestinal: soft Musculoskeletal: nl extremities to inspection Extremities: normal pulses Results Result Diagram: 01/09/17 0529 01/09/17 0529 Results 24 hrs Laboratory Tests Test 01/08/17 18:45 01/09/17 05:29 Bedside Glucose 254 H White Blood Count 10.0 # Red Blood Count 4.06 L Hemoglobin 11.3 L Hematocrit 34.2 L Mean Corpuscular Volume 84.2 Mean Corpuscular Hemoglobin 27.8 L Mean Corpuscular Hemoglobin Concent 33.0 Red Cell Distribution Width 13.7 Platelet Count 308 Mean Platelet Volume 10.8 H Neutrophils % 89.4 H Lymphocytes % 8.2 L Monocytes % 1.9 Eosinophils % 0.0 Basophils % 0.1 Nucleated Red Blood Cells % 0.0 Neutrophils # 9.0 H Lymphocytes # 0.8 Monocytes # 0.2 L Eosinophils # 0.0 Basophils # 0.0 Nucleated Red Blood Cells # 0.0 Sodium Level 136 Potassium Level 4.2 Chloride Level 105 Carbon Dioxide Level 25 Anion Gap 10 Blood Urea Nitrogen 4 L Creatinine 0.56 Glucose Level 165 Calcium Level 8.8 Total Bilirubin 0.2 Direct Bilirubin 0.00 Indirect Bilirubin 0.2 Aspartate Amino Transf (AST/SGOT) 54 H Alanine Aminotransferase (ALT/SGPT) 141 H Alkaline Phosphatase 78 Total Protein 7.0 Albumin 3.8 Globulin 3.20 Albumin/Globulin Ratio 1.18 Lipase 13 L Medications Medications Current Medications Dextrose/Sodium Chloride (D5-1/2ns) 1,000 ml @ 125 mls/hr Q8H IV Last administered on 01/09/17 14:38; Admin Dose 125 MLS/HR; Start 01/06/17 at 22:00 Morphine Sulfate (morphine) 4 mg Q4H PRN IV SEVERE PAIN LEVEL 7-10; Start at 22:00 Acetaminophen 650 mg 650 mg Q6H PRN PO PAIN AND OR ELEVATED TEMP Last administered on 01/08/17 08:23; Admin Dose 650 MG; Start 01/07/17 at 11:30 Levofloxacin/ Dextrose (Levaquin 500mg/ D5W 100 ml (Pmx)) 100 ml @ 100 mls/hr Q24H IVPB Last administered on 01/09/17 14:36; Admin Dose 100 MLS/HR; Start at 14:30 Oxycodone/ Acetaminophen (Percocet (5/ 325)) 1 tab Q4H PRN PO MILD PAIN (1-3); Start 01/08/17 at 18:30 Oxycodone/ Acetaminophen (Percocet (5/ 325)) 2 tab Q4H PRN PO MODERATE PAIN (4- 6); Start 01/08/17 at 18:30 Morphine Sulfate (morphine) 2 mg ONCE PRN IV SEVERE PAIN LEVEL 7-10 Last administered on 01/09/17 01:15; Admin Dose 2 MG; Start 01/08/17 at 18:30; Stop 01/09/17 at 18:29 Ondansetron HCl (Zofran Inj) 4 mg Q6H PRN IV NAUSEA Last administered on 01:15; Admin Dose 4 MG; Start 01/08/17 at 18:30 Metoclopramide HCl (Reglan) 10 mg Q6H PRN IV N/V Last administered on 21:32; Admin Dose 10 MG; Start 01/08/17 at 21:30 MELLO RONQUILLO MD January 09, 2017 15:14
== END 2017-01-09 19:15 | disposition home or self-care (01) | DRG 418 ==
LOC: FTE 14:56 → MS2 18:57
PROVIDERS: ADMIT Internal Medicine; ATTEND Internal Medicine
PROC: 0FT44ZZ Resection of Gallbladder, Percutaneous Endoscopic Approach (ICD-10-PCS; principal; 2017-01-08 17:30)
DX: K85.10 Biliary acute pancreatitis without necrosis or infection (principal); K80.10 Calculus of gallbladder with chronic cholecystitis without obstruction; D64.9 Anemia, unspecified; E87.6 Hypokalemia; J45.909 Unspecified asthma, uncomplicated
CPT/HCPCS: 36415; 74181; 76705; 80053; 81001; 81003; 82962; 83690; 83735; 84100; 85025; 88304; 94664; 96374; 96375; 96376; J0131; J0330; J0744; J1100; J1170; J1956; J2250; J2270; J2405; J2710; J2765; J2795; J3010; J3480; J7030; J7042